=== PATIENT | female | born 1950 | race Caucasian/White ===

== ENCOUNTER 2023-03-29 10:44 | Inpatient (IN) | payer MEDICARE, OTHER ==
[~2023-03-29] VITALS: Ht 165.1 cm; Wt 78.7 kg
[2023-03-29 11:11] VITALS: BP 97/46
[2023-03-29 16:18] LABS: BASO % 0.2 % (0.0-1.0); EOS # 0.1 10*3/uL (0.0-0.4); EOS % 0.7 % (1.0-4.0); HEMATOCRIT 37.2 % (37.0-47.0); LYMPH # 1.2 10*3/uL (1.3-4.4); LYMPH % 12.1 % (27.0-41.0); MEAN CELL VOLUME 95.1 fl (81.0-99.0); MEAN CORPUSCULAR HGB 32.7 pg (27.0-31.0); MEAN CORPUSCULAR HGB CONC 34.4 g/dl (33.0-37.0); MEAN PLATELET VOLUME 10.1 fl (9.6-12.3); MONO # 0.8 10*3/uL (0.1-1.0); MONO % 7.8 % (3.0-9.0); NEUT # 7.6 10*3/uL (2.3-7.9); NEUT % 78.9 % (47.0-73.0); PLATELET COUNT AUTOMATED 259 10*3/uL (130-400); RED BLOOD COUNT 3.91 10*6/uL (4.10-5.10); RED CELL DISTRI WIDTH 11.9 % (0-14.5); WHITE BLOOD COUNT 9.6 10*3/uL (4.8-10.8)
[2023-03-29 16:28] LABS: ACT PARTIAL THROMBO TIME 25.3 SECONDS (20.0-32.1)
[2023-03-29 16:51] LABS: ALKALINE PHOSPHATASE 66 U/L (46-116); BUN 15 mg/dl (9-23); CHLORIDE 103 mmol/L (98-107); POTASSIUM 3.9 mmol/L (3.4-5.1); SGPT/ALT 27 U/L (10-49); TOTAL PROTEIN 6.4 gm/dL (6.0-8.0)
[2023-03-29] MEDS ORDERED: ESOMEPRAZOLE MA40 M1 PO (17:58)
[2023-03-29] MEDS ORDERED: HYDROCHLOROTHIA25 M1 PO (17:59)
[2023-03-29] MEDS ORDERED: PROPRANOLOL HCL10 MG PO (17:59)
[2023-03-29] MEDS ORDERED: FLUOXETINE HYDR20 M1 PO (18:00)
[2023-03-29] MEDS ORDERED: AMLODIPINE BESYL5 MG PO (18:00)
[2023-03-29] MEDS ORDERED: ATORVASTATIN CA20 M1 PO (18:00)
[2023-03-29] MEDS ORDERED: NAPROXEN SOD.550 MG PO (18:01)
[2023-03-29] MEDS ORDERED: SYNTHROID25 MCG PO (18:01)
[2023-03-29] MEDS ORDERED: MELOXICAM15 MG PO (18:01)
[2023-03-29] MEDS ORDERED: CALCIUM 600 MG1 EAC8 PO (18:02)
[2023-03-29] MEDS ORDERED: MELATONIN5 M1 PO (18:03)
[2023-03-29] MEDS ORDERED: CENTRUM SILVER1 EAC1 PO (18:03)
[2023-03-29] MEDS ORDERED: VITAMIN D350 MCG PO (18:04)
[2023-03-29 18:09] VITALS: BP 101/61
[2023-03-29 19:37] VITALS: BP 109/50
[2023-03-29 21:30] VITALS: BP 115/77
[2023-03-30] VITALS (10 sets, daily range): BP systolic 103–142; BP diastolic 58–79
[2023-03-30 06:18] LABS: ALKALINE PHOSPHATASE 63 U/L (46-116); BUN 16 mg/dl (9-23); CHLORIDE 103 mmol/L (98-107); CHOLESTEROL 196 mg/dL (<200); LDL CHOLESTEROL 116 mg/dL (9-159); POTASSIUM 3.5 mmol/L (3.4-5.1); SGPT/ALT 23 U/L (10-49); THYROID STIM HORMONE (HS) 9.296 uIU/ml (0.550-4.780); TOTAL PROTEIN 6.3 gm/dL (6.0-8.0); TRIGLYCERIDES 194 mg/dl (<150)
[2023-03-30 06:19] LABS: BASO % 0.1 % (0.0-1.0); EOS # 0.1 10*3/uL (0.0-0.4); EOS % 1.3 % (1.0-4.0); HEMATOCRIT 37.3 % (37.0-47.0); LYMPH # 1.7 10*3/uL (1.3-4.4); LYMPH % 18.3 % (27.0-41.0); MEAN CELL VOLUME 97.4 fl (81.0-99.0); MEAN CORPUSCULAR HGB 31.9 pg (27.0-31.0); MEAN CORPUSCULAR HGB CONC 32.7 g/dl (33.0-37.0); MEAN PLATELET VOLUME 10.6 fl (9.6-12.3); MONO # 1.2 10*3/uL (0.1-1.0); NEUT # 6.2 10*3/uL (2.3-7.9); NEUT % 67.1 % (47.0-73.0); PLATELET COUNT AUTOMATED 254 10*3/uL (130-400); RED BLOOD COUNT 3.83 10*6/uL (4.10-5.10); RED CELL DISTRI WIDTH 12.1 % (0-14.5); WHITE BLOOD COUNT 9.2 10*3/uL (4.8-10.8)
[2023-03-30] MEDS ORDERED: HYDROCODONE-AC1 EAC1 PO (15:30)
[2023-03-31] VITALS: BP 138/75
[2023-03-31 06:18] LABS: BASO % 0.1 % (0.0-1.0); LYMPH % 6.5 % (27.0-41.0); MEAN CELL VOLUME 95.6 fl (81.0-99.0); MEAN CORPUSCULAR HGB 32.2 pg (27.0-31.0); MEAN CORPUSCULAR HGB CONC 33.7 g/dl (33.0-37.0); MONO # 1.1 10*3/uL (0.1-1.0); MONO % 6.8 % (3.0-9.0); NEUT # 13.5 10*3/uL (2.3-7.9); NEUT % 85.9 % (47.0-73.0); PLATELET COUNT AUTOMATED 250 10*3/uL (130-400); RED BLOOD COUNT 3.66 10*6/uL (4.10-5.10); RED CELL DISTRI WIDTH 11.8 % (0-14.5); WHITE BLOOD COUNT 15.7 10*3/uL (4.8-10.8)
[2023-03-31 06:29] LABS: BUN 14 mg/dl (9-23); CHLORIDE 105 mmol/L (98-107)
[2023-03-31 08:00] VITALS: BP 118/64
[2023-03-31 12:00] VITALS: BP 128/52
== END 2023-03-31 14:22 | disposition home or self-care (01) | DRG 511 ==
LOC: ED 10:44 → EDHOLD 15:59 → 4E 20:37
PROVIDERS: Internal Medicine; Student in an Organized Health Care Education/Training Program; ADMIT Student in an Organized Health Care Education/Training Program; ATTEND Student in an Organized Health Care Education/Training Program
PROC: 3E0T3BZ Introduction of Anesthetic Agent into Peripheral Nerves and Plexi, Percutaneous Approach (ICD-10-PCS; principal; 2023-03-30)
PROC: 0PSH04Z Reposition Right Radius with Internal Fixation Device, Open Approach (ICD-10-PCS; 2023-03-30)
PROC: 0PSK04Z Reposition Right Ulna with Internal Fixation Device, Open Approach (ICD-10-PCS; 2023-03-30)
PROC: 3E0T33Z Introduction of Anti-inflammatory into Peripheral Nerves and Plexi, Percutaneous Approach (ICD-10-PCS; 2023-03-30)
DX: S52.021A Displaced fracture of olecranon process without intraarticular extension of right ulna, initial encounter for closed fracture (principal); S42.401A Unspecified fracture of lower end of right humerus, initial encounter for closed fracture; S52.121A Displaced fracture of head of right radius, initial encounter for closed fracture; M85.80 Other specified disorders of bone density and structure, unspecified site; R00.1 Bradycardia, unspecified; W18.39XA Other fall on same level, initial encounter; G89.18 Other acute postprocedural pain; K21.9 Gastro-esophageal reflux disease without esophagitis; X58.XXXA Exposure to other specified factors, initial encounter; E03.9 Hypothyroidism, unspecified; I10 Essential (primary) hypertension; E78.5 Hyperlipidemia, unspecified; G25.0 Essential tremor; M54.9 Dorsalgia, unspecified; G89.29 Other chronic pain; Y93.89 Activity, other specified; Y92.89 Other specified places as the place of occurrence of the external cause; Y99.8 Other external cause status; Z88.0 Allergy status to penicillin; Z91.030 Bee allergy status; Z90.710 Acquired absence of both cervix and uterus; Z82.49 Family history of ischemic heart disease and other diseases of the circulatory system; Z79.899 Other long term (current) drug therapy

== ENCOUNTER → 2023-04-04 | Outpatient (CLI) | payer MEDICARE, OTHER ==
[~2023-04-04] MED LIST: AMLODIPINE BESYL5 MG PO; ATORVASTATIN CA20 M1 PO; CALCIUM 600 MG1 EAC8 PO; CENTRUM SILVER1 EAC1 PO; ESOMEPRAZOLE MA40 M1 PO; FLUOXETINE HYDR20 M1 PO; HYDROCHLOROTHIA25 M1 PO; HYDROCODONE-AC1 EAC1 PO; MELATONIN5 M1 PO; MELOXICAM15 MG PO; NAPROXEN SOD.550 MG PO; PROPRANOLOL HCL10 MG PO; SYNTHROID25 MCG PO; VITAMIN D350 MCG PO
== END | disposition home or self-care (01) ==
LOC: ORTHO 01:40
PROVIDERS: ATTEND Orthopaedic Surgery
DX: S52.101A Unspecified fracture of upper end of right radius, initial encounter for closed fracture (principal); M25.421 Effusion, right elbow; X58.XXXA Exposure to other specified factors, initial encounter; Y93.89 Activity, other specified; Y92.89 Other specified places as the place of occurrence of the external cause; Y99.8 Other external cause status

== ENCOUNTER → 2023-04-12 | Outpatient (CLI) | payer MEDICARE, OTHER | END | disposition home or self-care (01) | LOC: ORTHO 00:57 | PROVIDERS: ATTEND Orthopaedic Surgery | DX: S52.021D Displaced fracture of olecranon process without intraarticular extension of right ulna, subsequent encounter for closed fracture with routine healing (principal); X58.XXXD Exposure to other specified factors, subsequent encounter ==

== ENCOUNTER → 2023-04-19 | Outpatient (CLI) | payer MEDICARE, OTHER | END | disposition home or self-care (01) | LOC: ORTHO 04-18 11:10 | PROVIDERS: ATTEND Orthopaedic Surgery | DX: S52.021D Displaced fracture of olecranon process without intraarticular extension of right ulna, subsequent encounter for closed fracture with routine healing (principal); S52.121D Displaced fracture of head of right radius, subsequent encounter for closed fracture with routine healing; M25.421 Effusion, right elbow; X58.XXXD Exposure to other specified factors, subsequent encounter ==

== ENCOUNTER → 2023-05-10 | Outpatient (CLI) | payer MEDICARE, OTHER | END | disposition home or self-care (01) | LOC: ORTHO 01:18 | PROVIDERS: ATTEND Orthopaedic Surgery | DX: S52.021D Displaced fracture of olecranon process without intraarticular extension of right ulna, subsequent encounter for closed fracture with routine healing (principal); X58.XXXD Exposure to other specified factors, subsequent encounter ==

== ENCOUNTER → 2023-06-21 | Outpatient (CLI) | payer MEDICARE, OTHER | END | disposition home or self-care (01) | LOC: ORTHO 03:03 | PROVIDERS: ATTEND Orthopaedic Surgery | DX: S52.021D Displaced fracture of olecranon process without intraarticular extension of right ulna, subsequent encounter for closed fracture with routine healing (principal); X58.XXXD Exposure to other specified factors, subsequent encounter ==

== ENCOUNTER → 2023-09-13 | Outpatient (CLI) | payer MEDICARE, OTHER | END | disposition home or self-care (01) | LOC: ORTHO 00:23 | PROVIDERS: ATTEND Orthopaedic Surgery | DX: S52.021D Displaced fracture of olecranon process without intraarticular extension of right ulna, subsequent encounter for closed fracture with routine healing (principal); M19.021 Primary osteoarthritis, right elbow; X58.XXXD Exposure to other specified factors, subsequent encounter ==

== ENCOUNTER → 2024-03-13 | Outpatient (CLI) | payer MEDICARE, OTHER | END | disposition home or self-care (01) | LOC: ORTHO 03:11 | PROVIDERS: ATTEND Orthopaedic Surgery | DX: S52.021D Displaced fracture of olecranon process without intraarticular extension of right ulna, subsequent encounter for closed fracture with routine healing (principal); M25.421 Effusion, right elbow; X58.XXXD Exposure to other specified factors, subsequent encounter ==